=== PATIENT | female | born 1950 | race Caucasian/White ===

== ENCOUNTER 2019-05-13 16:38 | Emergency (ER) | payer MEDICARE, OTHER ==
[2019-05-13 17:34] LABS: ABS Basophils 0.1 10^3/ul (0-0.2); ABS Eosinophils 0.2 10^3/ul (0-0.6); ABS Monocytes 0.7 10^3/ul (0-0.8); ABS Neutrophils 4.4 10^3/ul (1.5-7.7); Eosinophil % 2.2 %; Hematocrit 33 % (35-47); Lymphocyte % 27.6 %; Mean Corpuscular HGB Conc 33 g/dL (31-36); Mean Corpuscular Hemoglobin 31 pg (27-31); Mean Corpuscular Volume 93 fL (80-97); Mean Platelet Volume 9.2 fL (7.4-10.4); Platelet Count 195 10^3/uL (150-450); Red Blood Count 3.57 10^6 /uL (3.70-4.87); Red Cell Distribution Width 15 % (10-15); White Blood Count 7.3 10^3/uL (3.5-10.8)
[2019-05-13 18:01] LABS: Albumin 3.7 g/dL (3.2-5.2); Albumin/Globulin Ratio 1.5 (1-3); Calcium 8.8 mg/dL (8.6-10.3); EGFR African American 66.3 (>60); EGFR Non-African American 54.8 (>60); Globulin 2.4 g/dL (2-4); Potassium 4.5 mmol/L (3.5-5.0); Total Bilirubin 0.5 mg/dL (0.2-1.0); Total Protein 6.1 g/dL (6.4-8.9)
--- OUTSIDE RECORDS SUMMARY | 2019-05-13 18:06 | XMS REPORT | Continuity of Care Document ---
:1950 External Reference #:[id number] Author Name Hadley Garcia M.D. (transmitted by agent of provider Jacqui Godfrey) Address [address] [address] Care Team Providers Name Role Phone Uziel Schuster MD - Internal Care Team Information Arts Administrator Or Manager [phone] Medicine Mitchel Tilley M.D. - Trauma Surgery Care Team Information Arts Administrator Or Manager Problems Active Problems Provider Date Late effects of cerebrovascular disease Abiel Tilley M.D. Onset: 2017 Essential hypertension Abiel Tilley M.D. Onset: 07/27/2018 Social History Type Date Description Comments Sex Unknown Tobacco Use Start: Unknown Former Cigarette Smoker End: Unknown Smoking Status Reviewed: 05/05/19 Former Cigarette Smoker ETOH Use Occasionally consumes alcohol Tobacco Use Start: Unknown Patient is a former 1/2 pack to 1 pack End: smoker cigarettes per day for 14 years. Recreational Drug Use Denies Drug Use Exercise Type/Frequency Exercises regularly Completed physical therapy 03/26 Yoga once weekly Starting water aerobics in 05/27 Allergies, Adverse Reactions, Alerts Active Allergies Reaction Severity Comments Date Dramamine rash 09/12/2004 Cranberry Preparation 11/24/2018 Medications Active Medications SIG Qnty Indications Ordering Provider Date Atenolol 1 by mouth every 30tabs Other Ordering 09/20/2018 50mg Tablets day Provider Lantus 25 units twice a Hadley Burrows 09/11/2004 100Units/ML day Akua Garcia Injection Paxil 1 PO qd 30tabs Hadley Burrows 09/11/2004 30mg Tablets Akua Garcia Metformin HCL 2 by mouth in Unknown 500mg the morning 1 in Tablets the evening.. Pioglitazone HCL 1 by mouth every Unknown 30mg day Tablets Atorvastatin Calcium 1 by mouth every Unknown 80mg day Tablets Losartan Potassium 1 by mouth Unknown 100mg daily Tablets Aspirin 81 Low Dose 1 by mouth every Unknown 81mg day Chewtabs Immunizations Description No Information Available Vital Signs Date Vital Result Comment 05/05/2019 11:48am Height 61 inches 5'1" Weight 266.25 lb with shoes Heart Rate 60 /min BP Systolic Sitting 150 mmHg Lue (Large cuff) BP Diastolic Sitting 80 mmHg Lue (Large cuff) BP Systolic Standing 150 mmHg BP Diastolic Standing 78 mmHg BP Systolic Lying Down 152 mmHg la repeat sitting BP Diastolic Lying Down 81 mmHg la repeat sitting BMI (Body Mass Index) 50.3 kg/m2 Ejection Fraction 67% Echocardiogram 12/16/2006 02/26/2019 10:28am Height 61 inches 5'1" Weight 272.00 lb Heart Rate 62 /min BP Systolic 130 mmHg BP Diastolic 82 mmHg BMI (Body Mass Index) 51.4 kg/m2 Results Test Date Facility Test Result H/L Range Note Laboratory test 11/24/2018 [facility] C Reactive 6.87 mg/L Normal <8.[address] [place] [address] [phone] Erythrocyte Sed Rate 31 mm/Hr High 0-30 1 Homocysteine 14 mcmol/L Abnormal 2 TSH (Thyroid Stim Horm) 1.79 mcIU/mL Normal 0.34-5.60 Free T4 (Free Thyroxine) 1.01 ng/dL Normal 0.61-1.12 1 Test Performed by: [facility] [address], [place] [address] Keon Logn M.D. Director of Laboratory 2 The homocysteine concentration is elevated in this sample. Increased homocysteine has been associated with an increased risk of cardiovascular disease, cerebrovascular disease, peripheral arterial disease and thrombosis. Vitamin deficiencies (B6, B12 and folic acid) may also cause an increased homocysteine concentration. Inborn errors of methionine metabolism are a potential, but less likely, possibility for hyperhomocysteinemia. Consider plasma or serum methylmalonic acid analysis to rule out vitamin B12 deficiency. REFERENCE VALUE <=13 (Fasting) ADDITIONAL INFORMATION This test was developed and its performance characteristics determined by [facility] in a manner consistent with CLIA requirements. This test has not been cleared or approved by the U.S. Food and Drug Administration. Test Performed by: [address] [address] Procedures Date Code Description Status 05/05/2019 85241 EKG Tracing & Interpretation Completed 04/06/2019 74920 Loop Recorder Device Eval W/Iterative Adj Implant Loop Completed Recorder 04/06/2019 81597 Loop Recorder Device Eval W/Iterative Adj Implant Loop Completed Recorder 11/18/2018 62414 EKG Tracing & Interpretation Completed 11/12/2018 23834 Insertion, Subcutaneous Cardiac Rhythm Monitor Completed Medical Devices Description No Information Available Encounters Type Date Location Provider Dx Diagnosis Office Visit 02/26/2019 [facility] Chance Clinton, 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 bilateral field [facility] defects, right side E78.00 Pure hypercholesterolemia, unspecified E11.8 Type 2 diabetes mellitus with unspecified complications I69.398 Other sequelae of cerebral infarction Office Visit 11/18/2018 10:00a [place] Erlinda Reed I10 Essential ( primary) Moiz, N.P. hypertension Z86.73 Prsnl hx of TIA (TIA), and cereb infrc w/o resid deficits I47.1 Supraventricular tachycardia E78.00 Pure hypercholesterolemia, unspecified E66.01 Morbid (severe) obesity due to excess calories Z68.43 Body mass index (BMI) 50.0-59.9, adult Assessments Date Code Description Provider 05/05/2019 I10 Essential (primary) hypertension Hadley Garcia M.D. 05/05/2019 R00.2 Palpitations Hadley Garcia M.D. 05/05/2019 Z86.73 Personal history of transient ischemic Hadley Garcia M.D. attack (TIA), and cerebral infarction without residual deficits 05/05/2019 I49.3 ECG: ventricular ectopics Hadley Garcia M.D. 05/05/2019 E11.8 Diabetes mellitus Hadley Garcia M.D. 05/05/2019 I73.9 Intermittent claudication Hadley Garcia M.D. 04/06/2019 I10 Essential (primary) hypertension Ica Pacer Schedule 04/06/2019 R00.2 Palpitations Ica Pacer Schedule 04/06/2019 I47.1 Supraventricular tachycardia Ica Pacer Schedule 04/06/2019 Z86.73 Personal history of transient ischemic Hadley Garcia M.D. 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 side 02/26/2019 E78.00 Pure hypercholesterolemia, unspecified Chance Clinton, N.P. 02/26/2019 E11.8 Type 2 diabetes mellitus with unspecified Chance Clinton, N.P. complications 02/26/2019 I69.398 Other sequelae of cerebral infarction Chance Clinton, N.P. 02/26/2019 Z86.73 Personal history of transient ischemic Chance Clinton, N.P. 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 side 11/24/2018 E78.00 Pure hypercholesterolemia, unspecified Chance Clinton, N.P. 11/24/2018 E11.8 Type 2 diabetes mellitus with unspecified Chance Clinton, N.P. complications 11/24/2018 I69.398 Other sequelae of cerebral infarction Chance Clinton, N.P. 11/18/2018 R00.2 Palpitations Hadley Garcia M.D. 11/18/2018 I10 Essential (primary) hypertension Erlinda Rockwell, N.P. 11/18/2018 Z86.73 Personal history of transient ischemic Erlinda S. Moiz, N.P. attack (TIA), and cer 11/18/2018 I47.1 Supraventricular tachycardia Erlinda Rockwell, N.P. 11/18/2018 E78.00 Pure hypercholesterolemia, unspecified Erlinda S. Moiz, N.P. 11/18/2018 E66.01 Morbid (severe) obesity due to excess Erlinda S. Moiz, N.P. calories 11/18/2018 Z68.43 Body mass index (BMI) 50-59.9, adult Erlinda Rowell. Moiz, N.P. 11/12/2018 Z86.73 Personal history of transient ischemic Komal Anton M.D. attack (TIA), and cer Plan of Treatment Future Appointment(s):07/12/2019 10:00 am - Erlinda Rockwell, N.P. at [facility]05/27/2019 8:00 am - [place] [facility] Schedule at [facility]2018 8:30 am - Hadley Garcia M.D. at [facility]05/05/2019 - Hadley Garcia M.D.I10 Essential (primary) hypertensionFollow up:ov registry np 2 m ov JFM 8 mR00.2 OacwaxysztufE62.73 Personal history of transient ischemic attack (TIA), and cerebral infarction without hztrfnlnmxqnjtumG70.3 ECG: ventricular ectopicsNew Orders:Echocardiogram, Scheduled: 05/27/19Stress Test, Pharmacologic Nuclear (Lexiscan), Scheduled: 06/18/19[facility] hsxsrxbrO21.9 Intermittent claudicationNew Xrays:VL Ank/Brachial Indices, Scheduled: 05/20/19 Functional Status Description No Information Available Mental Status Description No Information Available Referrals Description No Information Available
[2019-05-13 18:09] LABS: Magnesium 0.9 mg/dL (1.9-2.7)
[2019-05-13 18:16] LABS: TSH (Thyroid Stimulating Horm) 1.22 mcIU/mL (0.34-5.60)
[2019-05-13] MEDS ORDERED: Magnesium Sulfate 2 GM IV* 2 GM/50 ML BAG IVPB ONE (21:58)
--- NOTE | 2019-05-13 21:59 | ED ---
Medical Screening - HPI Summary HPI Summary: Patient presents for magnesium level of 0.9 per routine labs by perforator typist. Patient here forearm magnesium infusion. Patient states only symptoms over the past few days up and palpitations. Currently wearing a Holter monitor. Denies any other pain, injury or symptoms. - History of Current Complaint Chief Complaint: EDGeneral Stated Complaint: DR SENT FOR MAGNESIUM INFUSION PER PT Time Seen by Provider: 05/13/19 21:57 Severity: mild PMH/Surg Hx/FS Hx/Imm Hx Endocrine/Hematology History: Reports: Hx Diabetes Cardiovascular History: Reports: Hx Hypercholesterolemia, Hx Hypertension Denies: Hx Angina, Hx Coronary Artery Disease, Hx Myocardial Infarction, Hx Pacemaker/ICD, Hx Valvular Heart Disease Respiratory History: Denies: Hx Asthma, Hx Chronic Obstructive Pulmonary Disease (COPD) History: Denies: Hx Chronic Renal Failure Sensory History: Reports: Hx Contacts or Glasses Denies: Hx Hearing Aid Opthamlomology History: Reports: Hx Contacts or Glasses EENT History: Denies: Hx Deafness Neurological History: Denies: Hx Dementia Psychiatric History: Reports: Hx Panic Disorder - Cancer History Hx Chemotherapy: No Hx Radiation Therapy: No Infectious Disease History: No Infectious Disease History: Denies: Traveled Outside the [place] in Last 30 Days - Family History Known Family History: Positive: Non-Contributory - Social History Alcohol Use: Rare Alcohol Amount: 1-2/month Substance Use Type: Reports: None Smoking Status (MU): Former Smoker Review of Systems Constitutional: Negative Eyes: Negative ENT: Negative Positive: Palpitations Respiratory: Negative Gastrointestinal: Negative Genitourinary: Negative Musculoskeletal: Negative Skin: Negative Neurological: Negative Psychological: Normal All Other Systems Reviewed And Are Negative: Yes Physical Exam Triage Information Reviewed: Yes Vital Signs On Initial Exam: Initial Vitals Temp Pulse Resp BP Pulse Ox 97.2 F 63 18 182/85 97 05/13/19 16:54 05/13/19 16:54 05/13/19 16:54 05/13/19 16:54 05/13/19 16:54 Vital Signs Reviewed: Yes Appearance: Positive: Well-Appearing Skin: Positive: Warm Head/Face: Positive: Normal Head/Face Inspection Eyes: Positive: Normal Neck: Positive: Supple Respiratory/Lung Sounds: Positive: Clear to Auscultation Cardiovascular: Positive: Normal Abdomen Description: Positive: Nontender Musculoskeletal: Positive: Normal Neurological: Positive: Normal Psychiatric: Positive: Normal AVPU Assessment: Alert - Sunil Coma Scale Best Eye Response: 4 - Spontaneous Best Motor Response: 6 - Obeys Commands Best Verbal Response: 5 - Oriented Coma Scale Total: 15 Diagnostics - Vital Signs Vital Signs Temp Pulse Resp BP Pulse Ox 05/13/19 20:41 97 F 64 20 160/62 93 05/13/19 18:26 97.3 F 57 23 156/98 97 05/13/19 16:54 97.2 F 63 18 182/85 97 - Laboratory Lab Results: Lab Results 05/13/19 05/13/19 05/13/19 Range/Units 17:23 17:23 17:23 WBC 7.3 (3.5-10.8) 10^3/uL RBC 3.57 L (3.70-4.87) 10^6 /uL Hgb 11.0 L (12.0-16.0) g/dL Hct 33 L (35-47) % MCV 93 (80-97) fL MCH 31 (27-31) pg MCHC 33 (31-36) g/dL RDW 15 (10-15) % Plt Count 195 (150-450) 10^3/uL MPV 9.2 (7.4-10.4) fL Neut % (Auto) 59.8 % Lymph % (Auto) 27.6 % [place] % (Auto) 9.4 % Eos % (Auto) 2.2 % Baso % (Auto) 1.0 % Absolute Neuts (auto) 4.4 (1.5-7.7) 10^3/ul Absolute Lymphs (auto) 2.0 (1.0-4.8) 10^3/ul Absolute Monos (auto) 0.7 (0-0.8) 10^3/ul Absolute Eos (auto) 0.2 (0-0.6) 10^3/ul Absolute Basos (auto) 0.1 (0-0.2) 10^3/ul Absolute Nucleated RBC 0.0 10^3/ul Nucleated RBC % 0.0 Sodium 140 (135-145) mmol/L Potassium 4.5 (3.5-5.0) mmol/L Chloride 107 (101-111) mmol/L Carbon Dioxide 30 (22-32) mmol/L Anion Gap 3 (2-11) mmol/L BUN 19 (6-24) mg/dL Creatinine 1.00 H (0.51-0.95) mg/dL Est GFR ( Amer) 66.3 (>60) Est GFR (Non-Af Amer) 54.8 (>60) BUN/Creatinine Ratio 19.0 (8-20) Glucose 162 H (70-100) mg/dL Lactic Acid 0.3 L (0.5-2.0) mmol/L Calcium 8.8 (8.6-10.3) mg/dL Magnesium 0.9 L* (1.9-2.7) mg/dL Total Bilirubin 0.50 (0.2-1.0) mg/dL AST 13 (13-39) U/L ALT 11 (7-52) U/L Alkaline Phosphatase 84 (34-104) U/L Troponin I 0.00 (<0.04) ng/mL Total Protein 6.1 L (6.4-8.9) g/dL Albumin 3.7 (3.2-5.2) g/dL Globulin 2.4 (2-4) g/dL Albumin/Globulin Ratio 1.5 (1-3) TSH 1.22 (0.34-5.60) mcIU/mL Result Diagrams: 05/13/19 17:23 05/13/19 17:23 Lab Statement: Any lab studies that have been ordered have been reviewed, and results considered in the medical decision making process. Course/Dx - Course Course Of Treatment: Patient presents for magnesium level of 0.9 per routine labs by perforator typist. Patient here forearm magnesium infusion. Patient states only symptoms over the past few days up and palpitations. Currently wearing a Holter monitor. Denies any other pain, injury or symptoms. Vital signs within normal limits. EKG sinus rhythm, DANA normal, no prior EKG available. Magnesium level 0.9. Labs otherwise within normal limits. Magnesium 2 g IV administered here in the ED. Repeat magnesium level 1.6. Rx for magnesium chloride 64 mg daily, follow-up with primary care. - Diagnoses Provider Diagnoses: Hypomagnesemia Discharge ED - Sign-Out/Discharge Documenting (check all that apply): Patient Departure Patient Received Moderate/Deep Sedation with Procedure: No - Discharge Plan Condition: Stable Disposition: HOME Prescriptions: Magnesium Chloride EC TAB* [Slow Mag EC TAB*] 64 mg PO DAILY 10 Days #10 tab.ec Patient Education Materials: Hypomagnesemia (ED) Referrals: Uziel Schuster MD [Primary Care Provider] - Additional Instructions: Take magnesium as directed. Follow-up with primary care for further evaluation of low magnesium. - Billing Disposition and Condition Condition: STABLE Disposition: Home
[2019-05-14 01:22] VITALS: BP 169/86
== END 2019-05-14 01:22 | disposition home or self-care (01) ==
LOC: ED 16:38
DX: E83.42 Hypomagnesemia (principal); R00.2 Palpitations; E11.3293 Type 2 diabetes mellitus with mild nonproliferative diabetic retinopathy without macular edema, bilateral; E11.65 Type 2 diabetes mellitus with hyperglycemia; I49.3 Ventricular premature depolarization; I10 Essential (primary) hypertension; Z87.891 Personal history of nicotine dependence; Z79.4 Long term (current) use of insulin; Z79.84 Long term (current) use of oral hypoglycemic drugs; Z79.01 Long term (current) use of anticoagulants
CPT/HCPCS: 36415; 80053; 80061; 82043; 82550; 82570; 83605; 83735; 83880; 84443; 84484; 85025; 93005; 96365; 99284; J3475

== ENCOUNTER 2023-11-05 05:49 | Observation (INO) ==
[~2023-11-05 05:49] MED LIST: Naloxone 0.4 mg VIAL 0.4 mg/ml 1 ml VIAL IV PRN; fentaNYL 100 mcg/2 ml 50 MCG/ML VIAL IV PRN
[2023-11-05] MEDS ORDERED: ceFAZolin 2 GM in NS PREMIX 2 GM/100 ML BAG IVPB ONE (06:14)
[2023-11-05] MEDS ORDERED: Chlorhexidine MOUTHWASH 0.12% 15 ML UDC ONE (06:14)
[2023-11-05 06:38] LABS: Rapid COVID-19 Molecular Undetected (Undetected)
[2023-11-05] MEDS ORDERED: Rocuronium 50 mg VIAL 10 mg/ml 5 ml VIAL (50 mg) ONE ×2 (06:57→08:46)
[2023-11-05] MEDS ORDERED: Midazolam 2 mg/2 ml VIAL 1 mg/ml 2 ml VIAL (2 mg) ONE (06:57)
[2023-11-05] MEDS ORDERED: Ondansetron 4 mg VIAL 2 MG/ML 2 ml VIAL ONE (06:57)
[2023-11-05] MEDS ORDERED: Propofol 10 MG/ML 20 ML BTL ONE (06:57)
[2023-11-05] MEDS ORDERED: fentaNYL 100 mcg/2 ml 50 MCG/ML VIAL ONE (06:57)
[2023-11-05] MEDS ORDERED: Dexamethasone IV 4 MG/ML VIAL 1 ml VIAL ONE (06:57)
[2023-11-05] MEDS ORDERED: Sevoflurane BOTTLE ONE (06:57)
[2023-11-05] MEDS ORDERED: Lidocaine 2% PF 5 ML VIAL ONE (06:57)
[2023-11-05] MEDS ORDERED: Lidocaine 1% w EPI 1:100,000 MDV 20 ML VIAL ONE (07:00)
[2023-11-05] MEDS ORDERED: Thrombin 5,000 UNITS(BOVINE) for Ultrasound Guided Pseudoaneursym ONE (07:00)
[2023-11-05] MEDS ORDERED: ceFAZolin VIAL VIAL ONE (07:01)
[2023-11-05] MEDS ORDERED: Gelfoam Sponge SIZE 100 SPONGE ONE (07:01)
[2023-11-05] MEDS ORDERED: Acetaminophen IV 1 GM/100ML 1,000 MG/100 ML BAG IV ONE (08:05)
[2023-11-05] MEDS ORDERED: Benzocaine/Menthol LOZ MT PRN (09:53)
[2023-11-05] MEDS ORDERED: Calcium Carb (TUMS) 500 mg CHEW TAB PO PRN (09:53)
[2023-11-05] MEDS ORDERED: Morphine 2 MG/ML SYRINGE IV PRN (09:53)
[2023-11-05] MEDS ORDERED: Dextran 70/Hypromellose Tears Eye Drops 15 ml BTL (for Artificials Tears) BOTH EYES PRN (09:53)
[2023-11-05] MEDS ORDERED: HYDROcodone/ACETAMIN 5/325 mg TAB PO PRN (09:53)
[2023-11-05] MEDS ORDERED: Ondansetron 4 mg VIAL 2 MG/ML 2 ml VIAL IV PRN (09:53)
[2023-11-05] MEDS: Buffered Lidocaine 1% SYRIN 1 ml INTRADERM ONE (10:06)
[2023-11-05] MEDS: Lactated Ringers 1000 ml BAG 1,000 ML IV SCH ×2 (10:07→13:44)
[2023-11-05] MEDS: Phenol 1.4% Throat Spray BTL MT PRN (12:32)
[2023-11-05] MEDS: Insulin GLARGINE 100 un/ml 10 ml VIAL SUBCUT SCH (21:23)
[2023-11-06] MEDS: HYDROcodone/ACETAMIN 5/325 mg TAB PO PRN (06:21)
[2023-11-06] MEDS: Aspirin EC 81 mg TAB.EC (enteric coated) PO SCH (09:20)
[2023-11-06 10:09] VITALS: BP 124/67
== END 2023-11-06 13:15 | disposition home or self-care (01) ==
LOC: SSU 05:49 → OR 05:49
PROVIDERS: ADMIT Neurological Surgery; ATTEND Neurological Surgery